=== PATIENT | female | born 1950 | race Caucasian/White ===

== ENCOUNTER → 2016-10-14 | Day surgery (SDC) | payer OTHER ==
[~2016-10-14] VITALS: Ht 160 cm; Wt 90.7 kg
[~2016-10-14] MED LIST: COLACE100 M1 PO; DOXAZOSIN MESYLA1 M1 PO; HYDROCHLOROTHIA25 M1 PO; LOVASTATIN40 M1 PO; NEXIUM40 M1 PO; TOPROL XL100 M1 PO; ZYRTEC10 M3 PO
--- NOTE | 2016-10-14 07:34 | Operative Report ---
Operative/Inv Procedure Report Surgery Date: 10/14/16 Name of Procedure: Right knee arthroscopy, partial lateral meniscectomy Pre-Operative Diagnosis: Right knee lateral meniscus tear Post-Operative Diagnosis: Right knee lateral meniscus tear Estimated Blood Loss: scant Surgeon/Protection Engineer: ELIZABETH LOFTON MD Anesthesia: laryngeal mask airway Complications: None Condition: Stable to PACU Operative Indication: This is a 65-year-old female with right knee pain that has failed conservative care. MRI showed a lateral meniscus tear. Risks and benefits of the procedure were discussed with the patient at length. Risks include but are not limited to nerve damage, muscle damage, infection, blood loss, blood clots, pulmonary embolus, and even . The patient agreed to the above risks and elected to proceed with surgery. Operative/Procedure Note Note: The patient was placed supine on the operating room table. A tourniquet was applied. The lower extremity prepped and draped in normal sterile fashion. A timeout was performed before the incision. The site marking was visualized before incision. After the leg was prepped and draped, an Esmarch was used to exsanguinate the extremity. The tourniquet was inflated. A standard inferolateral portal was established with an 11 blade. The camera was inserted. A medial portal was established with a spinal needle and an 11 blade. The diagnostic arthroscopy was then performed which showed the above findings. A straight biter was used to debride the body and posterior horn of the lateral meniscus. A shaver was then used to further stabilize the cartilage back to a stable rim. A shaver was then used to perform a chondroplasty over the lateral femoral condyle. The knee was copiously irrigated. The portal sites were closed with 3-0 nylon suture in a simple interrupted fashion. The knee was injected with 10 mL of 0.25% Marcaine with epinephrine. A dry sterile dressing was applied and the patient was transferred to PACU in stable condition. Findings: Medial meniscus intact. Medial tibial plateau with grade 2 chondral changes, medial femoral condyle articular cartilage intact. ACL intact. PCL intact. Complex tear of the body and posterior horn of the lateral meniscus. Grade 2 chondral changes of the lateral femoral condyle. Lateral tibial plateau grade 1 chondral changes. Patellofemoral joint articular cartilage with grade 1 chondral changes. No loose bodies noted.
== END ==
LOC: STS 01:34
DX: M23.251 Derangement of posterior horn of lateral meniscus due to old tear or injury, right knee (principal); E11.9 Type 2 diabetes mellitus without complications; Z79.84 Long term (current) use of oral hypoglycemic drugs; E78.5 Hyperlipidemia, unspecified; I10 Essential (primary) hypertension
CPT/HCPCS: J0131; J2250

== ENCOUNTER → 2017-07-14 | Day surgery (SDC) | payer OTHER ==
[~2017-07-14] VITALS: Ht 157.5 cm; Wt 88.5 kg
--- NOTE | 2017-07-14 16:32 | Operative Report ---
Operative/Inv Procedure Report Surgery Date: 07/14/17 Name of Procedure: Left ring trigger finger release Pre-Operative Diagnosis: Left ring trigger finger Post-Operative Diagnosis: Left ring trigger finger Estimated Blood Loss: scant Surgeon/Motor Mechanic: Enoch Underwood MD Anesthesia: local monitored anesthesi Complications: None Condition: Stable to PACU Operative Indication: This is a 66-year-old female long-standing trigger finger in the left ring finger. She has failed conservative care. Risks and benefits of the procedure were discussed with the patient at length. Risks include but are not limited to nerve damage, muscle damage, infection, blood loss, blood clots, pulmonary embolus, and even . The patient agreed to the above risks and elected to proceed with surgery. Operative/Procedure Note Note: The patient was taken to the operating room and placed supine on the operating room table. A tourniquet was applied to the arm above the elbow. The upper extremity was prepped and draped in the normal sterile fashion. The patient received IV antibiotics prior to incision. A time out was performed and the site marking was also visualized prior to incision. An Esmarch was used to exsanguinate the extremity. The tourniquet was inflated. A transverse incision was then made overlying the A1 dana of the ring finger. Care was taken to protect the digital nerves. The A1 dana was then incised in line with the tendon. Care was taken to protect the A-2 dana distally. The tendons were delivered from the wound and noted to be free of any strictures. Once the release was complete the wound was copiously irrigated. The incision was closed with 3-0 nylon suture in a simple interrupted fashion. 0.25% Marcaine was then injected to anesthetize the wound. A dry sterile dressing was applied and the patient was transferred to PACU in stable condition.
== END ==
LOC: STS 02:11
DX: M65.342 Trigger finger, left ring finger (principal); I10 Essential (primary) hypertension; K21.9 Gastro-esophageal reflux disease without esophagitis; J44.9 Chronic obstructive pulmonary disease, unspecified; Z87.891 Personal history of nicotine dependence
CPT/HCPCS: J2250